=== PATIENT | female | born 1995 | race Caucasian/White ===

== ENCOUNTER → 2020-02-26 | Outpatient (CLI) | payer SELFPAY ==
--- NOTE | 2020-02-26 13:12 | Diagnostic Imaging Report ---
INDICATION: Scoliosis. TIME OF EXAM: 11:16 a.m. FINDINGS: Extensive spinal instrumentation is seen extending from the upper thoracic spine to the lumbar spine. There appears to be upper thoracic right convexity scoliotic curvature. Overall quality of the study is somewhat limited due to patient's body habitus. Hardware does appear to be intact. Hardware does obscure vertebral bodies. Lungs are clear. There is no effusion or pneumothorax. IMPRESSION: Right convexity thoracic scoliotic curvature with spinal instrumentation. No hardware fracture is identified. Dictated by: Dictated on workstation # [id number]
== END ==
LOC: RAD 10:35
PROVIDERS: ATTEND Nurse Practitioner Family
DX: M41.84 Other forms of scoliosis, thoracic region (principal)
CPT/HCPCS: 72081